=== PATIENT | male | born 1975 | race African-American/Black ===

== ENCOUNTER 2025-02-13 19:57 | Emergency (ER) | payer OTHER, SELFPAY ==
[2025-02-13 20:02] VITALS: BP 138/90
--- NOTE | 2025-02-13 23:46 | ED.GENMED ---
History of Present Illness
General
Chief Complaint: Male Genito-Urinary Symptoms
Time Seen by Provider: 02/13/25 23:12
History of Present Illness
History of Present Illness:
patient with hx of groin injury in the past, non operative
was playing soccer tonight, felt pop in L groin
felt muscle coil up leg
denies numbness or tingling
severe pain in L leg medially
Phy Exam
Physical Exam
Physical Exam:
General: No acute distress
Head: NCAT
Neck, Normal in appearance, no swelling
Respiratory: No Respiratory distress
Abdomen: No distension
Ext: Tenderness to left anterior inferior iliac spine. Pain with straight leg raise. Pain with range of motion of left hip. knee is stable, linus negative, no effusion FROM. 5/5 DF/PF, pedal pulses strong, SILT throughout
Neuro: FARRIS, AOx4
Psych: Normal affect
Skin: Normal color
Course
Orders/Labs/Results
Orders:
Orders
02/13/25 23:45
Ketorolac [Toradol] 15 mg IM NOW STA
02/14/25 00:01
CR Hip - LT w/wo Pel 2-3 Vw* Urgent
Reason For Exam: pain, heard pop
Include a pelvis x-ray?: Yes
CR Knee - Left 4 Or More View* Urgent
Reason For Exam: injury
02/14/25 01:[address] Non Medication Order As Directed
Physician Order: crutches
Vital Signs
Initial and Last Documented VS:
Initial Vital Signs
Temp Pulse Resp BP Pulse Ox
98.9 F 88 22 138/90 98
02/13/25 20:02 02/13/25 20:02 02/13/25 20:02 02/13/25 20:02 02/13/25 20:02
Last Documented Vital Signs
Temp Pulse Resp BP Pulse Ox
98.9 F 88 22 138/90 98
02/13/25 20:02 02/13/25 20:02 02/13/25 20:02 02/13/25 20:02 02/13/25 20:02
*Critical Care Note
Total Time (30-74mins, 75-104mins- exclusive of procedures): Not Applicable
ED Attending Note
ED Attending Note
ED Attending Note:
no avulsion fracture seen
clinically suspect adductor tendon rupture
will place in crutches, recommend rest, ortho follow up
-
Portions of this chart may have been created with voice recognition software.� Occasional wrong word or��sound alike� substitutions may have occurred due to the inherent limitations of voice recognition software.
Discharge Plan
Departure
Patient Disposition: Home (Routine Discharge)
Date of Disposition: 02/14/25
Time of Disposition: 01:06
Patient with high blood pressure during this ER visit?: No
Discharge Problem:
Injury of adductor muscle, fascia, or tendon of thigh
Instructions: Groin Strain (DC)
Referrals:
Yusef Sarabia I., DO [Family Provider] -
Timothy Emerson MD [Active] -
Activity Restrictions/Additional Instructions:
please call to schedule follow up with the orthopedist in the morning
use the crutches until your appointment
rest
ice
keep leg elevated
Interventions
Interventions:
*Risk Screen - Suicide Last Done: 02/13/25 20:02
*General Assessment Last Done: 02/14/25 01:09
*Neglect/Abuse Screening Last Done: 02/13/25 20:02
*ED- Fall Risk Assessment Last Done: 02/14/25 01:09
*ED COVID-19 Vaccine History Last Done: 02/14/25 01:09
ED-Male Genitourinary Assessment Last Done: 02/13/25 22:19
ED-Musculoskeletal Assessment Last Done: 02/13/25 22:19
Discharge Date and Time
Print Language: MALDIVIAN
[2025-02-13] MEDS: TORADOL 15 MG IM (23:54)
[2025-02-14 01:55] VITALS: BP 130/75
== END 2025-02-14 01:56 | disposition home or self-care (01) ==
LOC: EMR 19:57
PROVIDERS: EMERGENCY PHYSICIAN Emergency Medicine; FAMILY PHYSICIAN Internal Medicine
DX: S76.202A Unspecified injury of adductor muscle, fascia and tendon of left thigh, initial encounter (principal); X58.XXXA Exposure to other specified factors, initial encounter; Y93.66 Activity, soccer
CPT/HCPCS: 99284; 96372; 73502; 73564

== ENCOUNTER 2025-07-14 17:01 | Outpatient (RCR) | payer OTHER, SELFPAY | END 2025-07-14 23:59 | disposition home or self-care (01) | LOC: RPT 17:01 | PROVIDERS: ATTENDING PHYSICIAN Student in an Organized Health Care Education/Training Program; PRIMARYCARE PHYSICIAN Internal Medicine | DX: S76.219D Strain of adductor muscle, fascia and tendon of unspecified thigh, subsequent encounter (principal); Z73.6 Limitation of activities due to disability; R26.89 Other abnormalities of gait and mobility; X58.XXXD Exposure to other specified factors, subsequent encounter | CPT/HCPCS: 97110; 97140; 97162 ==